=== PATIENT | female | born 1980 | race Hispanic/Latino ===

== ENCOUNTER 2018-10-06 09:58 | Outpatient (CLI) | payer BC ==
--- NOTE | 2018-10-06 13:58 | Mammography Report ---
BILATERAL DIGITAL SCREENING MAMMOGRAM with CAD: 10/06/18 09:58:00 CLINICAL: Routine screening. COMPARISON:None available. FINDINGS: The breasts are heterogeneously dense, which may obscure small masses. No mass, architectural distortion or suspicious calcifications. IMPRESSION: No mammographic evidence of malignancy. BI-RADS CATEGORY: 1 - - Negative RECOMMENDATION: Routine mammographic screening in one year. COMMENT: Patient follow-up letters are generated by our [employer] application.
== END 2018-10-06 09:59 | disposition home or self-care (01) ==
LOC: SPVWC 09:58
PROVIDERS: ATTEND Family Medicine
DX: Z12.31 Encounter for screening mammogram for malignant neoplasm of breast (principal)
CPT/HCPCS: 77067